=== PATIENT | female | born 1955 | race Caucasian/White ===

== ENCOUNTER → 2018-12-26 | Outpatient (CLI) | payer BC ==
--- NOTE | 2019-01-12 11:15 | EM ---
EVENT MONITOR I the event monitor, there are several tracings available almost all of them were sinus rhythm or sinus bradycardia. There is one tracing with an isolated PAC. There is one about 9 to 10 beat run of what seems to be a paroxysmal atrial tachycardia at 150 beats per minute. There is no evidence of any significant ventricular ectopy, This episode of VT of about 10 beats occurred on 01/07/2019 and this was an auto capture. IMPRESSION: Episode of PSVT auto capture, no symptoms. MMODL / IJN: [id number] /
== END | disposition home or self-care (01) ==
LOC: RADECHMAIN 12:04
PROVIDERS: ATTEND Family Medicine
DX: I47.1 Supraventricular tachycardia (principal)
CPT/HCPCS: 93270

== ENCOUNTER → 2019-02-16 | Outpatient (CLI) | payer MEDICARE ==
--- NOTE | 2019-02-19 11:37 | MM ---
Reason for exam: screening (asymptomatic). Last mammogram was performed 9 years and 3 months ago. History: Patient is postmenopausal and has history of endometrial cancer at age 63. Family history of breast cancer in maternal grandmother. Physical Findings: A clinical breast exam by your physician is recommended on an annual basis and results should be correlated with mammographic findings. MG 3D Screening Mammo W/Cad Bilateral CC and MLO view(s) were taken. Prior study comparison: November 11, 2009, bilateral digital screening mammogram. November 21, 1998, bilateral special view mammogram. The breast tissue is heterogeneously dense. This may lower the sensitivity of mammography. Benign appearing calcifications in the right breast. No suspicious abnormality. ASSESSMENT: Benign, BI-RAD 2 RECOMMENDATION: Routine screening mammogram of both breasts in 1 year.
== END ==
LOC: RADMAMWWP 09:11
PROVIDERS: ATTEND Family Medicine
DX: Z12.31 Encounter for screening mammogram for malignant neoplasm of breast (principal)
CPT/HCPCS: 77063; 77067

== ENCOUNTER → 2020-09-12 | Outpatient (CLI) | payer MEDICARE ==
--- NOTE | 2020-09-13 06:57 | MR ---
EXAMINATION TYPE: MR brain wo/w con DATE OF EXAM: 09/12/2020 COMPARISON: None HISTORY: Visual disturbance, head injury 2017 CONTRAST: Standard multiplanar, multisequence MRI departmental protocol utilizing 8 mL intravenous Gadavist carol olinium contrast. There is mild cerebral atrophy appropriate for age. There is no mass effect nor midline shift. There is no sign of intracranial hemorrhage. Diffusion images show no evidence of an acute infarct. On the T2 and FLAIR images there are multiple peripheral white matter high signal foci in both cerebral katie spheres. These are near the daniels-white matter junction and measure up to 7 mm. Most of these lesions are less than 5 mm. Total number is approximately 25. The brainstem is intact. Cerebellum is intact. Corpus callosum is intact. Sella turcica appears normal. There is no evidence of orbital mass. The co ntrast images show no pathologic enhancement. There is normal enhancement of the venous sinuses. IMPRESSION: Numerous predominantly small white matter high signal foci are somewhat peripheral and more likely re lated to microvascular ischemia. Demyelinating disease is not excluded. Mild atrophy.
== END | disposition home or self-care (01) ==
LOC: RADMRIMAIN 09:48
PROVIDERS: ATTEND Family Medicine
DX: G31.9 Degenerative disease of nervous system, unspecified (principal); H53.8 Other visual disturbances
CPT/HCPCS: 70553; A9585

== ENCOUNTER → 2024-04-09 | Outpatient (CLI) | payer MEDICARE ==
--- NOTE | 2024-04-10 08:44 | MM ---
Reason for Exam: Screening (asymptomatic). Last mammogram was performed 5 year(s) and 1 month(s) ago. Patient History: Menarche at age 12. First Full-Term at age 24. Left ovary removed at age 64. Right ovary removed at age 64. Hysterectomy at age 64. Postmenopausal. Patient has history of breast feeding. Endometrial cancer, age 63. Maternal grandmother had breast cancer. Risk Values: Betsy 5 year model risk: 1.9%. NCI Lifetime model risk: 5.6%. Prior Study Comparison: 11/21/1998 Bilateral Special View Mammogram, [facility]. 11/11/2009 Bilateral Screening Mammogram, [facility]. 02/16/2019 Bilateral Screening Mammogram, [facility]. Tissue Density: There are scattered areas of fibroglandular density. Findings: Analyzed By CAD. Right breast: There is no suspicious group of microcalcifications or new suspicious mass. Left breast: There is no suspicious group of microcalcifications or new suspicious mass. Overall Assessment: Negative, BI-RAD 1 Management: Screening Mammogram of both breasts in [address] [facility] will attempt to contact patient to return for supplemental views and ultrasound if indicated. Patient should continue monthly self-breast exams. A clinical breast exam by your physician is recommended on an annual basis. This exam should not preclude additional follow-up of suspicious palpable abnormalities. Note on Betsy scores and lifetime risk: 1. A Betsy score greater than 3% is considered moderate risk. If this is the case, consider specialist referral to assess eligibility for a risk reducing agent. 2. If overall lifetime risk for the development of breast cancer is 20% or higher, the patient may qualify for future screening with alternating mammogram and breast MRI. [facility], , 04/10/2024 8:41 AM. Electronically signed and approved by: García Rich DO
== END | disposition home or self-care (01) ==
LOC: RADMAMWWP 16:43
PROVIDERS: ATTEND Family Medicine
DX: Z12.31 Encounter for screening mammogram for malignant neoplasm of breast (principal); R92.323 Mammographic fibroglandular density, bilateral breasts; Z78.0 Asymptomatic menopausal state; Z80.3 Family history of malignant neoplasm of breast
CPT/HCPCS: 77063; 77067